=== PATIENT | male | born 1965 | race Caucasian/White ===

== ENCOUNTER → 2017-07-13 | Outpatient (CLI) | payer MEDICARE ==
--- NOTE | 2017-07-13 12:24 | REP ---
MR CERVICAL SPINE WITHOUT CONTRAST: HISTORY: Right arm numbness. A disc bulge with associated osteophyte formation is present at the C3-4 level. There is moderate effacement of the thecal sac without spinal cord compression. Bilateral uncinate process hypertrophy is present. This produces moderate narrowing of the C3 neural foramina. A disc bulge and small central disc protrusion are present at the C5-6 level. There is minimal effacement of the thecal sac without spinal core compression. Uncinate process hypertrophy is present on the right. This produces mild narrowing of the right C5 neural foramen. The left C5 neural foramen is patent. There is no other disc bulge or herniation. The remaining neural foramina are patent. The spinal cord is normal in signal intensity. The C3-4 intervertebral disc is decreased in height consistent with disc degeneration. Normal signal intensity is present in the cervical vertebral bodies. IMPRESSION: There is cervical spondylosis at the C3-4 and C5-6 levels without spinal cord compression. Signed by Emmanuel Almazan MD 07/13/2017 12:32 P
== END ==
LOC: M RAD 09:47
PROVIDERS: ATTEND Pain Medicine Interventional Pain Medicine
DX: M54.2 Cervicalgia (principal)

== ENCOUNTER → 2020-06-21 | Outpatient (CLI) | payer MEDICARE ==
--- NOTE | 2020-06-28 16:54 | REP ---
CT CHEST WITHOUT CONTRAST: LOW-DOSE SCREENING EXAM HISTORY: Encounter for screening for lung cancer. COMPARISON: No comparison chest CT. CT FINDINGS: Preliminary digital fnps radiograph is unremarkable. There are mild emphysematous changes particularly in the upper lobes. There is no evidence of pulmonary mass or significant pulmonary nodule. No infiltrate is seen. No evidence of pleural effusion is seen. Minimal vascular calcification is noted. IMPRESSION: Lung-RADS Category 1 findings. Repeat screening study suggested in one year. MTDD
== END ==
LOC: M RAD 12:49
PROVIDERS: ATTEND Student in an Organized Health Care Education/Training Program
DX: Z12.2 Encounter for screening for malignant neoplasm of respiratory organs (principal); Z87.891 Personal history of nicotine dependence